=== PATIENT | male | born 1995 | race Caucasian/White ===

== ENCOUNTER 2020-03-27 08:24 | Emergency (ER) | payer BC ==
[~2020-03-27] VITALS: Ht 188 cm; Wt 79.4 kg
[2020-03-27 09:08] LABS: HEMATOCRIT 41.4 % (42.0-52.0); HEMOGLOBIN 14.8 gm/dL (14.0-18.0); MCH 30.6 pg (26.0-34.0); MCHC 35.7 g/dL (28.0-37.0); MCV 85.8 fL (80.0-100.0); PLATELET COUNT 366 thou/uL (150-400); RBC 4.83 mil/uL (4.50-6.00); RDW 12.5 % (10.5-14.5); WBC 6.1 thou/uL (4.0-11.0)
[2020-03-27 09:20] LABS: ANION GAP 9 mmol/L (7-16); BUN 9 mg/dL (7-18); CALCIUM 9.4 mg/dL (8.5-10.1); CHLORIDE 97 mmol/L (98-107); CO2 28 mmol/L (21-32); CREATININE 1.2 mg/dL (0.7-1.3); GLUCOSE 101 mg/dL (74-106); SODIUM 134 mmol/L (136-145)
[2020-03-27 09:32] LABS: ABSOLUTE NEUTROPHILS 3.5 thou/uL (1.4-8.2); PLATELET ESTIMATE NORMAL
[2020-03-27 09:35] LABS: ALBUMIN 4.6 g/dL (3.4-5.0); SGOT 22 U/L (15-37); SGPT 36 U/L (30-65); TOTAL BILIRUBIN 0.9 mg/dL (0.2-1.0); TOTAL PROTEIN 7.8 g/dL (6.4-8.2); TROPONIN-I <0.06 ng/mL (<0.06)
[2020-03-27 11:28] LABS: URINE BILIRUBIN NEGATIVE (Negative); URINE BLOOD NEGATIVE (Negative); URINE CLARITY CLEAR; URINE COLOR YELLOW; URINE GLUCOSE-RANDOM* NEGATIVE (Negative); URINE KETONES 2+ (Negative); URINE LEUKOCYTES-REFLEX NEGATIVE (Negative); URINE NITRITE-REFLEX NEGATIVE (Negative); URINE PROTEIN (DIPSTICK) NEGATIVE (Negative); URINE UROBILINOGEN 0.2 E.U./dl (0.2-1.0)
[2020-03-27 11:39] LABS: AMP/METHAMP Negative (Negative); BARBITURATES Negative (Negative); BENZODIAZEPINES Negative (Negative); COCAINE Negative (Negative); METHADONE Negative (Negative); OPIATES Negative (Negative); PCP Negative (Negative)
[2020-03-27] MEDS ORDERED: PRILOSEC OTC20 MG PO (12:38)
[2020-03-27 13:04] VITALS: BP 125/71
--- NOTE | 2020-03-27 15:53 | EKG ---
[facility] [place] [address] ELECTROCARDIOGRAM REPORT Name: ABHISHEK QUINTANA Room #: DEP [facility]#: [id number] Admission: 03/27/20 Attend Phys: Discharge: 03/27/20 Date of : [birth year] Report #: [id number] THIS REPORT FOR: cc: TALHA - Zena family physician/PCP TALHA - Zena family physician/PCP Randy Champion MD [facility] THIS REPORT FOR: //name// [facility] ED Test Date: 2020-03-27 Test Time: 08:36:12 Pat Name: ABHISHEK QUINTANA Department: Room: Gender: Health And Safety Consultant: [facility] : 1995 Requested By: Charles Gar Order Number: [id number] MD: Randy Champion Measurements Intervals [place] Rate: 102 P: 79 [place]: 128 QRS: 49 QRSD: 99 T: 46 QT: 338 QTc: 441 Interpretive Statements Sinus tachycardia Otherwise normal tracing No previous ECG available for comparison Electronically Signed On 03-27-2020 15:53:08 CDT by Randy Champion [email or web address] <ELECTRONICALLY SIGNED> By: Randy Champion MD, [facility] 03/27/20 1553 [id number] 5 Randy Champion MD, FACC /EPI
== END 2020-03-27 13:04 | disposition home or self-care (01) ==
LOC: ER 08:24
PROVIDERS: Emergency Medicine
DX: K21.9 Gastro-esophageal reflux disease without esophagitis (principal); E87.6 Hypokalemia